=== PATIENT | male | born 1960 | race Caucasian/White ===

== ENCOUNTER 2016-06-11 00:24 | Emergency (ER) | payer SELFPAY ==
[~2016-06-11] VITALS: Ht 198.1 cm; Wt 124.8 kg
[~2016-06-11 00:24] MED LIST: LISIPOW XX; SOMA350T; SUBO2MIS SL
[2016-06-11 00:30] VITALS: BP 155/102; PULSE 92; RESP 18; TEMP 97.6; O2SAT 98
[2016-06-11 00:42] VITALS: BP 167/99; PULSE 81; RESP 18; O2SAT 100
[2016-06-11] MEDS ORDERED: NAPR250T PO (00:59)
[2016-06-11] MEDS ORDERED: LIDOCAINE HCL 1% PF 30 ML VIAL INFIL ONE (01:00)
--- NOTE | 2016-06-11 01:15 | PD ---
HPI Chief Complaint: Laceration/Skin Injury Time Seen by Provider: 00:52 Travel History International Travel<30 days: No Contact w/Intl Traveler<30days: No Traveled to known affect area: No History of Present Illness HPI 56-year-old male presents to the emergency department with laceration to the right index finger. Patient reports just prior to arrival to the emergency department within the past hour while using a knife to prepare a meal he cut his right index finger with a knife at the DIP. Patient now has difficulty extending the distal portion of the finger. Patient denies other injury. Patient reports his tetanus status is current as of 2013. Patient rates pain . PFSH Past Medical History Narrative Medical Hypertension, tonsillectomy, sinus surgery, C5 6 laminectomy, alcohol use, nursing notes reviewed Diminished Hearing: No Hypertension: Yes Medical other: Yes (TONSILLECTOMY) Immunizations Current: Yes Tetanus Vaccination: < 5 Years Past Surgical History Neurologic Surgery: Yes (LAMINECTOMY C5 C6) Tonsillectomy: Yes Other Surgery: Yes (SINUSES) Social History Alcohol Use: Yes (12 PACK BEERS DAILY) Tobacco Use: No Substance Use: No Allergies-Medications (Allergen,Severity, Reaction): Coded Allergies: Demerol (Verified Allergy, Severe, "FEELS LIKE HE IS GOING TO ", ) Penicillin (Verified Allergy, Mild, 06/11/16) Tetracycline (Verified Allergy, Mild, 06/11/16) Reported Meds & Prescriptions Reported Meds & Active Scripts Active Reported Naproxen 250 Mg Tab 440 Mg PO BID Lisinopril Pow 1 XX Review of Systems Except as stated in HPI: all other systems reviewed are Neg Physical Exam Narrative Well-developed well-nourished male in no acute distress no respiratory distress Extremity attention right index finger dorsal aspect 1 cm laceration over the DIP with evidence of inability to completely extend the digit consistent with extensor tendon injury; I refill brisk and less than 2 seconds per digit sensation intact flexion intact. Data Data Last Documented VS Vital Signs Date Time Temp Pulse Resp B/P Pulse Ox O2 Delivery O2 Flow Rate FiO2 06/11/16 00:45 81 18 06/11/16 00:42 167/99 100 06/11/16 00:30 97.6 Orders Lidocaine Pf 1% Inj (Xylocaine-Mpf 1% In (06/11/16 01:00) Finger (Leu6cav) (06/11/16 ) MDM Medical Decision Making Medical Screen Exam Complete: Yes Emergency Medical Condition: Yes Differential Diagnosis Laceration, fracture, tendon injury Narrative Course Patient with extensor tendon injury of the right index finger with associated laceration; Imaging study does not reveal any obvious fracture; laceration repaired and splint applied. Patient referred to hand surgeon. Physician Communication Physician Communication discussed with Dr Dugan--will see as outpatient Diagnosis Primary Impression: Extensor tendon laceration, finger, open wound Qualified Code: S66.529A - Extensor tendon laceration, finger, open wound, initial encounter Referrals: Hand Surgeon 3 days call office on Monday to schedule follow up appointment --asset protection detective hand surgeon - -Dr Dugan Patient Instructions: General Instructions Additional Instructions: Keep site clean and dry wear splint Follow-up with hand surgeon call office on Monday to schedule follow-up appointment Take antibiotic as prescribed May take as tolerated ibuprofen for pain associated with inflammation Recommend two-day wound check 7-10 day suture removal Med/Other Pt SpecificInfo: Prescription(s) given Scripts Sulfamethoxazole-Trimethoprim (Bactrim DS)800-160 Mg Tab1 Tab PO BID #14 TAB Ref 0 Prov:Carey Riojas MD 06/11/16 Disposition: DISCHARGE HOME Condition: Stable Carey Riojas MD Jun 11, 2016 01:14
[2016-06-11] MEDS ORDERED: CEPH-460 PO (01:46)
[2016-06-11] MEDS ORDERED: BACT800T5 PO (01:48)
[2016-06-11] MEDS ORDERED: SULFAMETHOXAZOLE-TRIMETHOPRIM DS 800-160 MG TAB PO ONE (02:00)
--- NOTE | 2016-06-11 02:18 | RADHPO ---
EXAM DATE/TIME: 06/11/2016 01:05 [facility] COMPARISON: No previous studies available for comparison. INDICATIONS : Laceration to right hand, second digit post cutting with knife. MEDICAL HISTORY : None. SURGICAL HISTORY : None. ENCOUNTER: Initial ACUITY: 1 day PAIN SCORE: 4/10 LOCATION: Right upper extremity FINDINGS: Examination of the second digit of the right hand demonstrates no evidence of fracture or dislocation . No radiopaque foreign bodies are seen. CONCLUSION: 1. No acute bony abnormalities. Silvio Romero MD on June 11, 2016 at 2:16 Board Certified Radiologist. This report was verified electronically.
== END 2016-06-11 02:35 | disposition home or self-care (01) ==
LOC: PHED 00:24
DX: S66.320A Laceration of extensor muscle, fascia and tendon of right index finger at wrist and hand level, initial encounter (principal); I10 Essential (primary) hypertension; W26.0XXA Contact with knife, initial encounter; Y93.G1 Activity, food preparation and clean up; Y92.000 Kitchen of unspecified non-institutional (private) residence as the place of occurrence of the external cause; Y99.8 Other external cause status
CPT/HCPCS: 12001; 73140

== ENCOUNTER 2017-09-03 18:13 | Inpatient (IN) | payer SELFPAY ==
[2017-09-03] VITALS (7 sets, daily range): BP systolic 157–197; BP diastolic 68–89; PULSE 88–97; RESP 18–22; TEMP 97.4; O2SAT 96–100
[~2017-09-03] VITALS: Ht 198.1 cm; Wt 127.4 kg
[~2017-09-03 18:13] MED LIST changes: +BACT800T5 PO; +NAPR250T4 PO; -SOMA350T; -SUBO2MIS SL
[2017-09-03] MEDS ORDERED: SODIUM CHLOR 0.9% 1000 ML INJ 1,000 ML IV SCH (18:26)
[2017-09-03] MEDS ORDERED: PANTOPRAZOLE INJ 80 MG in SODIUM CHLORIDE 0.9% INJ 35 ML IV ONE (18:26)
[2017-09-03] MEDS ORDERED: SODIUM CHLORIDE 0.9% FLUSH 10 ML FLUSH IVF PRN (18:30)
--- NOTE | 2017-09-03 18:36 | PD ---
HPI Chief Complaint: Syncope/Near-Syncope Time Seen by Provider: 18:26 Travel History International Travel<30 days: No Contact w/Intl Traveler<30days: No Traveled to known affect area: No History of Present Illness HPI The patient is a 57-year-old male who presents to the emergency department via EMS for melena. The patient states his symptoms started last night at 3 AM when he went to the bathroom. The patient states he felt lightheaded, weak, and subsequently had a bowel movement which she describes as dark black stool. The patient states he has had a total of 5 bowel movements with black tarry stool without any visible blood. The patient also states he drank some water and had one episode of emesis which appeared to be coffee- ground like in color without any visible bright red blood. The patient does have a previous history of an ulcer, however, he states he also healed. He does not currently take any proton pump inhibitors or H2 blockers. The patient does have a history of hypertension but does not take his lisinopril. The patient states he stood up earlier today and became lightheaded, had to sit down on the ground. EMS states when they arrived the patient was tachycardic with a heart rate greater than 100 and pale. He also noted he was diaphoretic at that time. They provided the patient 500 cc of normal saline prior to arrival and the patient's symptoms improved. He denies taking any blood thinners or anticoagulants. However, he takes 5 220 mg tablets of Aleve every morning and has been doing this for several months. The patient does not have a primary physician. Symptoms are moderate. He denies any chest pain or shortness of breath. He does complain of mild lightheadedness upon standing. The patient also states he drinks 8-10 16 ounce natural ice beers daily. PFS Past Medical History Diminished Hearing: No Hypertension: Yes Immunizations Current: Yes Tetanus Vaccination: < 5 Years Influenza Vaccination: No ?: Not Past Surgical History Neurologic Surgery: Yes (LAMINECTOMY C5 C6) Tonsillectomy: Yes Other Surgery: Yes (SINUSES) Social History Alcohol Use: Yes (8-10 BEERS DAILY) Tobacco Use: Yes Substance Use: No Allergies-Medications (Allergen,Severity, Reaction): Coded Allergies: meperidine (Unverified Allergy, Severe, "FEELS LIKE HE IS GOING TO ", ) doxycycline (Unverified Allergy, Mild, 11/08/16) minocycline (Unverified Allergy, Mild, 11/08/16) penicillin G (Unverified Allergy, Mild, 11/08/16) tigecycline (Unverified Allergy, Mild, 11/08/16) Reported Meds & Prescriptions Reported Meds & Active Scripts Active Bactrim DS (Sulfamethoxazole-Trimethoprim) 800-160 Mg Tab 1 Tab PO BID Reported Naproxen 250 Mg Tab 440 Mg PO BID Lisinopril Pow 1 XX Review of Systems Except as stated in HPI: all other systems reviewed are Neg General / Constitutional: No: Fever HENT: Positive: Lightheadedness, No: Headaches Cardiovascular: Positive: Tachycardia (Tachycardia per EMS), Diaphoresis ( Diaphoretic per EMS), Syncope (Near-syncope), No: Chest Pain or Discomfort Gastrointestinal: Positive: Vomiting, Other (Dark black tarry stools and one episode of coffee-ground emesis), No: Nausea, Abdominal Pain Genitourinary: No: Decreased Urinary Output Musculoskeletal: Positive: Weakness Neurologic: Positive: Weakness, Dizziness Physical Exam Narrative GENERAL: Awake, alert, pleasant 57-year-old male who appears his stated age and is in no acute respiratory distress. SKIN: Focused skin assessment warm/dry. HEAD: Atraumatic. Normocephalic. EYES: Pupils equal and round. Conjunctival pallor noted. ENT: No nasal bleeding or discharge. Mucous membranes pink and moist. NECK: Trachea midline. No JVD. CARDIOVASCULAR: Regular rate and rhythm. No murmur appreciated. Heart rate in the 90s. RESPIRATORY: No accessory muscle use. Clear to auscultation. Breath sounds equal bilaterally. GASTROINTESTINAL: Abdomen soft, obese, with reducible umbilical hernia. No guarding or rigidity. MUSCULOSKELETAL: No obvious deformities. No clubbing. No cyanosis. No edema. Rectal: Grossly black stool that is grossly guaiac positive. NEUROLOGICAL: Awake and alert. No obvious cranial nerve deficits. Motor grossly within normal limits. Normal speech. PSYCHIATRIC: Appropriate mood and affect; insight and judgment normal. Data Data Last Documented VS Vital Signs Date Time Temp Pulse Resp B/P (MAP) Pulse Ox O2 Delivery O2 Flow Rate FiO2 09/03/17 18:24 97 18 189/89 (122) 100 Room Air Orders Orders Complete Blood Count With Diff (09/03/17) Comprehensive Metabolic Panel (09/03/17) Prothrombin Time / Inr (Pt) (09/03/17) Act Partial Throm Time (Ptt) (09/03/17) Alcohol (Ethanol) (09/03/17) Type And Screen (09/03/17) Ecg Monitoring (09/03/17) Iv Access Insert/Monitor (09/03/17) Oximetry (09/03/17) Sodium Chlor 0.9% 1000 Ml Inj (Ns 1000 M (09/03/17) Sodium Chloride 0.9% Flush (Ns Flush) (09/03/17) Sodium Chloride 0.9... W/Pantoprazole In (09/03/17) Sodium Chloride 0.9... W/Pantoprazole In (09/03/17) Lactic Acid (09/03/17) Orthostatic Vital Signs (09/03/17) MDM Medical Decision Making Medical Screen Exam Complete: Yes Emergency Medical Condition: Yes Medical Record Reviewed: Yes Interpretation(s) EKG reveals normal sinus rhythm with a rate of 90 inverted T waves noted in lead V4, V5, V6, I, and aVL. LVH. Differential Diagnosis Differential diagnosis includes esophageal varices, gastritis, peptic ulcer disease, upper GI bleed, symptomatic anemia, coagulopathy, Aleve side effect, electrolyte abnormality. Narrative Course IV was established, labs are drawn and sent, and the patient was placed on cardiac telemetry monitoring and continuous pulse oximetry monitoring. EKG was ordered and interpreted. Type and screen was sent to lab. Orthostatic vital signs were obtained. The patient was administered a Protonix bolus and placed on a Protonix drip. The patient was signed out to the oncoming physician at 7 PM. The patient will require admission. [facility] Point of Care Internal Pos. & Neg. Controls: Passed Fecal Specimen Occult Blood: Positive Physician Communication Physician Communication The on-call medical service was paged for admission. Diagnosis Primary Impression: Upper gastrointestinal hemorrhage Admitting Information Admitting Physician Requests: Admit Condition: Stable Lv Temple MD Sep 03, 2017 18:36
[2017-09-03 18:54] LABS: BASOPHIL # 0.1 TH/MM3 (0-0.2); BASOPHIL % 0.7 % (0.0-2.0); EOSINOPHIL % 0.2 % (0.0-4.0); HEMATOCRIT 25.7 % (39.0-51.0); HEMOGLOBIN 8.4 GM/DL (13.0-17.0); LYMPH % 12.5 % (9.0-44.0); LYMPHOCYTE # 1.9 TH/MM3 (1.0-4.8); MEAN CELL VOLUME 89.1 FL (80.0-100.0); MEAN CORPUSCULAR HEMOGLOBIN 29.3 PG (27.0-34.0); MEAN CORPUSCULAR HGB CONC 32.8 % (32.0-36.0); MEAN PLATELET VOLUME 9.7 FL (7.0-11.0); MONOCYTE # 0.9 TH/MM3 (0-0.9); NEUT % 80.6 % (16.0-70.0); PLATELET COUNT 230 TH/MM3 (150-450); RED BLOOD COUNT 2.88 MIL/MM3 (4.50-5.90); WHITE BLOOD COUNT 14.9 TH/MM3 (4.0-11.0)
[2017-09-03] MEDS: PANTOPRAZOLE INJ 80 MG in SODIUM CHLORIDE 0.9% INJ 100 ML IV SCH (19:12)
[2017-09-03 19:13] LABS: PROTHROMBIN TIME - PATIENT 10.4 SEC (9.8-11.6)
[2017-09-03 19:14] LABS: ALBUMIN 2.8 GM/DL (3.4-5.0); AST (GOT) 17 U/L (15-37); BICARBONATE 22.4 MEQ/L (21.0-32.0); BLOOD UREA NITROGEN 56 MG/DL (7-18); CALCIUM 7.8 MG/DL (8.5-10.1); CHLORIDE 108 MEQ/L (98-107); CREATININE 0.85 MG/DL (0.60-1.30); GLOMERULAR FILTRATION RATE 93 ML/MIN (>89); GLUCOSE,RANDOM 140 MG/DL (74-106); SODIUM (NA) 142 MEQ/L (136-145)
--- NOTE | 2017-09-03 19:14 | PD ---
Physical Exam Narrative General: The patient is a well-developed well-nourished male in no acute distress. Head and Neck exam: Head is normocephalic atraumatic. Mouth: Moist mucus membranes. Neck: No palpable lymphadenopathy. No nuchal rigidity. No thyromegaly. Cardiovascular: Regular rate and rhythm without murmurs, gallops, or rubs. No pulse deficit to the extremities on simultaneous auscultation and palpation of his radial artery. Lungs: Clear to auscultation bilaterally. No wheezes, rhonchi, or rales. Abdomen: Soft, with reported periumbilical tenderness on palpation with an umbilical hernia palpated. The patient reports that this is chronic, however the tenderness is somewhat new. The patient refuses to allow for thorough examination of the area for palpation for reduction, however according to Dr. Temple he was able to adequately evaluate the patient's abdomen and the umbilical hernia was reducible at that time. No guarding, rebound, or rigidity. Normal bowel sounds are audible. Extremities: No clubbing, cyanosis, or edema. 2+ pulses in all 4 extremities. Neurologic exam: Grossly nonfocal. Data Data Last Documented VS Vital Signs Date Time Temp Pulse Resp B/P (MAP) Pulse Ox O2 Delivery O2 Flow Rate FiO2 09/03/17 20:36 95 20 165/68 (100) 98 Room Air Orders Orders Complete Blood Count With Diff (09/03/17 18:) Comprehensive Metabolic Panel (09/03/17 18:) Prothrombin Time / Inr (Pt) (09/03/17 18:) Act Partial Throm Time (Ptt) (09/03/17 18:) Alcohol (Ethanol) (09/03/17 18:) Type And Screen (09/03/17 18:) Ecg Monitoring (09/03/17 18:) Iv Access Insert/Monitor (09/03/17:) Oximetry (09/03/17 18:) Sodium Chlor 0.9% 1000 Ml Inj (Ns 1000 M (09/03/17 18:26) Sodium Chloride 0.9% Flush (Ns Flush) (09/03/17 18:30) Sodium Chloride 0.9... W/Pantoprazole In (09/03/17 18:26) Sodium Chloride 0.9... W/Pantoprazole In (09/03/17 18:26) Lactic Acid (09/03/17 18:26) Orthostatic Vital Signs (09/03/17 18:26) Electrocardiogram (09/03/17 18:29) Ct Abd/Pel W Iv Contrast(Rout) (09/03/17 20:35) Admit Order (Ed Use Only) (09/03/17 20:37) Labs Laboratory Tests Test 09/03/17 18:40 White Blood Count 14.9 TH/MM3 Red Blood Count 2.88 MIL/MM3 Hemoglobin 8.4 GM/DL Hematocrit 25.7 % Mean Corpuscular Volume 89.1 FL Mean Corpuscular Hemoglobin 29.3 PG Mean Corpuscular Hemoglobin Concent 32.8 % Red Cell Distribution Width 17.0 % Platelet Count 230 TH/MM3 Mean Platelet Volume 9.7 FL Neutrophils (%) (Auto) 80.6 % Lymphocytes (%) (Auto) 12.5 % Monocytes (%) (Auto) 6.0 % Eosinophils (%) (Auto) 0.2 % Basophils (%) (Auto) 0.7 % Neutrophils # (Auto) 12.0 TH/MM3 Lymphocytes # (Auto) 1.9 TH/MM3 Monocytes # (Auto) 0.9 TH/MM3 Eosinophils # (Auto) 0.0 TH/MM3 Basophils # (Auto) 0.1 TH/MM3 CBC Comment DIFF FINAL Differential Comment Prothrombin Time 10.4 SEC Prothromb Time International Ratio 1.0 RATIO Activated Partial Thromboplast Time 17.8 SEC Blood Urea Nitrogen 56 MG/DL Creatinine 0.85 MG/DL Random Glucose 140 MG/DL Total Protein 5.4 GM/DL Albumin 2.8 GM/DL Calcium Level 7.8 MG/DL Alkaline Phosphatase 38 U/L Aspartate Amino Transf (AST/SGOT) 17 U/L Alanine Aminotransferase (ALT/SGPT) 32 U/L Total Bilirubin 0.6 MG/DL Sodium Level 142 MEQ/L Potassium Level 4.0 MEQ/L Chloride Level 108 MEQ/L Carbon Dioxide Level 22.4 MEQ/L Anion Gap 12 MEQ/L Estimat Glomerular Filtration Rate 93 ML/MIN Lactic Acid Level 1.9 mmol/L Ethyl Alcohol Level LESS THAN 3 MG/DL [facility] Medical Record Reviewed: Yes Supervised Visit with MYCHAL: No Narrative Course During the course of the patient's emergency department visit, the patient's history, examination, and differential diagnosis were reviewed with the patient. The patient was placed on a monitoring and evaluation advisor with oximetry and frequent blood pressure monitoring. The patient had IV access obtained and blood work sent for analysis. The patient's case was checked out to me by Dr. Temple. Please see his complete history and physical. The patient's case was checked out to me at the conclusion of his shift. The patient was initially provided normal saline at 125 mL/h, Protonix 80 mg IV followed by a Protonix drip. The patient's laboratory studies were reviewed and remarkable for a white count of 14.9, hemoglobin 8.4, platelets 230 with 80.6 neutrophils. Given the patient 's reported abdominal pain, CT scan of the abdomen and pelvis was added to the patient's workup. CMP is remarkable for a chloride of 108, BUN is elevated at 56 likely related to his GI bleed, glucose 140, lactic acid 1.9, calcium 7.8, alk phos 38, albumin 2.8. PT 10.4, PTT 17.8. Alcohol level less than 3. Radiology studies were reviewed and remarkable for Last Impressions Abdomen/Pelvis CT 09/03/172034 Signed Impressions: . CONCLUSION: 1. No acute findings. 2. Nonacute findings include mild fatty liver. 4 cm hepatic hemangioma, bilate ral age. Region Adrenal masses most characteristic of adrenal adenomas, fat-con taining umbilical hernia and sebaceous cyst posteriorly. The patient's results were discussed with the patient, including the plan of care. I explained that further testing and/ or monitoring is indicated based on the patient's history, examination, and/ or laboratory findings. Therefore, I recommended admission for additional evaluation. The patient expressed understanding and was agreeable with this plan. The patient was admitted to the hospital in guarded condition and sent to a bed under the care of the family practice resident service. Physician Communication Physician Communication The patient's case including history, pertinent physical examination findings, and laboratory studies were discussed with the family practice resident. It was agreed that the patient would be admitted to the Dr. Valencia's service. Diagnosis Primary Impression: Upper gastrointestinal hemorrhage Additional Impression: Umbilical hernia Qualified Codes: K42.9 - Umbilical hernia without obstruction or gangrene Admitting Information Admitting Physician Requests: Admit Condition: Stable Britta Vickers MD Sep 03, 2017 19:14
[2017-09-03 19:15] LABS: ALT (GPT) 32 U/L (12-78)
[2017-09-03 19:18] LABS: ALKALINE PHOSPHATASE 38 U/L (45-117); TOTAL BILIRUBIN ADULT 0.6 MG/DL (0.2-1.0); TOTAL PROTEIN 5.4 GM/DL (6.4-8.2)
[2017-09-03] MEDS ORDERED: SENNOSIDES 8.6 MG TAB PO PRN (21:15)
[2017-09-03] MEDS ORDERED: NALOXONE HCL 0.4 MG/ML AMP IV PUSH PRN (21:15)
[2017-09-03] MEDS ORDERED: LORazepam 1 MG TAB PO PRN (21:15)
[2017-09-03] MEDS ORDERED: THIAMINE HCL 100 MG TAB PO ONE (21:15)
[2017-09-03] MEDS ORDERED: FLUMAZENIL 0.5 MG/5 ML VIAL IV PUSH PRN (21:15)
[2017-09-03] MEDS ORDERED: BISACODYL 10 MG SUPP RECTAL PRN (21:15)
[2017-09-03] MEDS ORDERED: SODIUM CHLORIDE 0.9% FLUSH 10 ML FLUSH IV FLUSH PRN (21:15)
[2017-09-03] MEDS ORDERED: MAGNESIUM HYDROXIDE SUSP 30 ML CUP PO PRN (21:15)
[2017-09-03] MEDS ORDERED: LORazepam 2 MG TAB PO PRN (21:15)
[2017-09-03] MEDS ORDERED: LORazepam 2 MG/ML VIAL IV PUSH PRN ×4 (21:15)
[2017-09-03] MEDS ORDERED: LACTULOSE SYRUP 20 GM/30 ML CUP PO PRN (21:15)
--- NOTE | 2017-09-03 21:17 | HHI.HP ---
HPI Service Family Medicine Primary Care Physician Unknown Admission Diagnosis GI Bleed Diagnoses: International Travel<30 Days: No Contact w/Intl Traveler<30days: No Known Affected Area: No History of Present Illness 57 yo male with h/o HTN presenting with a 1 day history of bloody stools and hematemesis. Around 3 AM had first large dark tarry stool, proceeded to have 4 more such stools throughout the day. Toward afternoon had one episode large coffee ground emesis. + nausea. Looked pale, felt lightheaded/dizzy. Mother called EMS to take him to hospital for evaluation. No fall though he felt like he could have fallen. Symptoms associated with abdominal pain last few days. Significant use of Aleve (Five 220 mg tabs a day for last several weeks). Social Hx notable for alcohol use 8-10 beers per day. Review of Systems Constitutional: DENIES: Fever, Chills Endocrine: DENIES: Heat/cold intolerance Eyes: DENIES: Vision loss Ears, nose, mouth, throat: DENIES: Vertigo, Nasal discharge, Throat pain, Ear Pain Respiratory: DENIES: Cough, Wheezing, Shortness of breath Cardiovascular: DENIES: Chest pain, Palpitations Gastrointestinal: COMPLAINS OF: Abdominal pain, Black stools, Nausea, Vomiting , DENIES: Constipation, Diarrhea Genitourinary: DENIES: Dysuria Musculoskeletal: DENIES: Joint pain, Muscle aches Integumentary: DENIES: Rash Hematologic/lymphatic: DENIES: Bruising Neurologic: DENIES: Localized weakness Psychiatric: DENIES: Anxiety, Depression Past Family Social History Past Medical History Essential hypertension Past Surgical History Tonsillectomy Sinus surgery Neck fusion - 2009 Reported Medications Reports Rx for lisinopril, but stopped taking months ago Allergies: Coded Allergies: meperidine (Unverified Allergy, Severe, "FEELS LIKE HE IS GOING TO ", ) doxycycline (Unverified Allergy, Mild, 11/08/16) minocycline (Unverified Allergy, Mild, 11/08/16) penicillin G (Unverified Allergy, Mild, 11/08/16) tigecycline (Unverified Allergy, Mild, 11/08/16) Active Ordered Medications Current Medications Medications (Trade) Dose Ordered Sig/Cyrus Route Start Time Stop Time Status Last Admin Sodium Chloride 1,000 ml @ 125 mls/hr Q8H IV 09/03/17 18:26 09/04/17 02:25 09/03/17 18:54 (NS Flush) 2 ml UNSCH PRN IVF 09/03/17 18:30 Pantoprazole Sodium 80 mg/ Sodium Chloride 100 ml @ 10 mls/hr Q10H IV 09/03/17 18:26 09/03/17 19:12 Sodium Chloride 1,000 ml @ 100 mls/hr Q10H IV 09/03/17 21:04 09/03/17 21:34 (NS Flush) 2 ml UNSCH PRN IV FLUSH 09/03/17 21:15 (NS Flush) 2 ml BID IV FLUSH 09/04/17 09:00 (Narcan Inj) 0.4 mg UNSCH PRN IV PUSH 09/03/17 21:15 (Barbi-Colace) 1 tab BID PO 09/04/17 09:00 (Milk Of Magnesia Liq) 30 ml Q12H PRN PO 09/03/17 21:15 (Senokot) 17.2 mg Q12H PRN PO 09/03/17 21:15 (Dulcolax Supp) 10 mg DAILY PRN RECTAL 09/03/17 21:15 (Lactulose Liq) 30 ml DAILY PRN PO 09/03/17 21:15 (Romazicon Inj) 0.2 mg Q1M PRN IV PUSH 09/03/17 21:15 (Ativan) 1 mg Q4H PRN PO 09/03/17 21:15 09/03/17 21:40 (Ativan Inj) 1 mg Q4H PRN IV PUSH 09/03/17 21:15 (Ativan) 2 mg Q2H PRN PO 09/03/17 21:15 (Ativan Inj) 2 mg Q2H PRN IV PUSH 09/03/17 21:15 (Ativan Inj) 2 mg Q1H PRN IV PUSH 09/03/17 21:15 (Ativan Inj) 2 mg Q15M PRN IV PUSH 09/03/17 21:15 (Vitamin B1) 100 mg DAILY PO 09/04/17 09:00 (Theragran) 1 tab DAILY PO 09/04/17 09:00 (Zofran Odt) 4 mg Q6H PRN PO 09/03/17 22:15 Family History Father had essential hypertension Social History Tob - Smokes socially (a pack a month or so) Alc - 8-10 beers per day Drugs - h/o opiate abuse in the past, not for many years Lives with mom and cousin Physical Exam Vital Signs Vital Signs Date Time Temp Pulse Resp B/P (MAP) Pulse Ox O2 Delivery O2 Flow Rate FiO2 09/03/17 20:36 95 20 165/68 (100) 98 Room Air 09/03/17 20:01 92 18 197/78 (117) 98 Room Air 09/03/17 18:28 99 Room Air 09/03/17 18:24 97 18 189/89 (122) 100 Room Air 09/03/17 18:24 90 18 100 Room Air 09/03/17 18:20 94 18 189/89 (122) 99 Physical Exam GENERAL: WDWN overweight adult white male lying in bed in NAD SKIN: No rashes, ecchymoses or lesions. Cool and dry. Pale. HEAD: NC/AT EYES: PERRL. EOMI. No conjunctival injection or drainage. ENT: MMM, OP without erythema, tonsillar swelling, or exudate. NECK: Supple, no lymphadenopathy. CARDIOVASCULAR: NRRR. Normal S1/S2. No MRG RESPIRATORY: CTAB. No crackles or wheezes. GASTROINTESTINAL: Abdomen soft, moderately distended, non-tender. No hepato- splenomegaly or palpable masses. ?fluid wave (questionable due to body habitus) . ~3x3 cm umbilical hernia, reducible, without evidence of strangulation. MUSCULOSKELETAL: Extremities without clubbing, cyanosis, or edema. NEUROLOGICAL: Awake and alert. Cranial nerves II through XII grossly intact. Moves all extremities without difficulty. No asterixis. Normal speech. Laboratory Laboratory Tests Test 09/03/17 18:40 White Blood Count 14.9 Red Blood Count 2.88 Hemoglobin 8.4 Hematocrit 25.7 Mean Corpuscular Volume 89.1 Mean Corpuscular Hemoglobin 29.3 Mean Corpuscular Hemoglobin Concent 32.8 Red Cell Distribution Width 17.0 Platelet Count 230 Mean Platelet Volume 9.7 Neutrophils (%) (Auto) 80.6 Lymphocytes (%) (Auto) 12.5 Monocytes (%) (Auto) 6.0 Eosinophils (%) (Auto) 0.2 Basophils (%) (Auto) 0.7 Neutrophils # (Auto) 12.0 Lymphocytes # (Auto) 1.9 Monocytes # (Auto) 0.9 Eosinophils # (Auto) 0.0 Basophils # (Auto) 0.1 CBC Comment DIFF FINAL Differential Comment Prothrombin Time 10.4 Prothromb Time International Ratio 1.0 Activated Partial Thromboplast Time 17.8 Blood Urea Nitrogen 56 Creatinine 0.85 Random Glucose 140 Total Protein 5.4 Albumin 2.8 Calcium Level 7.8 Alkaline Phosphatase 38 Aspartate Amino Transf (AST/SGOT) 17 Alanine Aminotransferase (ALT/SGPT) 32 Total Bilirubin 0.6 Sodium Level 142 Potassium Level 4.0 Chloride Level 108 Carbon Dioxide Level 22.4 Anion Gap 12 Estimat Glomerular Filtration Rate 93 Lactic Acid Level 1.9 Ethyl Alcohol Level LESS THAN 3 Result Diagram: 09/03/17183909/03/171839 Imaging Last Impressions Abdomen/Pelvis CT 09/03/172034 Signed Impressions: . CONCLUSION: 1. No acute findings. 2. Nonacute findings include mild fatty liver. 4 cm hepatic hemangioma, bilate ral age. Region Adrenal masses most characteristic of adrenal adenomas, fat-con taining umbilical hernia and sebaceous cyst posteriorly. Caprini VTE Risk Assessment Caprini VTE Risk Assessment: Mod/High Risk (score >= 2) VTE Pharm Contraindication: Active bleeding Assessment and Plan Assessment and Plan 57 yo with h/o essential hypertension presenting with: Problem List: (1) Upper gastrointestinal hemorrhage ICD Codes: K92.2 - Gastrointestinal hemorrhage, unspecified Status: Acute Plan: Acute GIB, likely upper based on history Likely etiology PUD due to NSAID use, but variceal bleed also a concern given alcohol intake - Consulted GI; case discussed with Dr. Salas, appreciate recs - NPO after midnight, plan for scope in AM - Primary team to notify GI if further hematemesis or drastic drop in H/H for more urgent endoscopy - Protonix drip - Avoid NSAIDs - Trend H/H (2) Abdominal pain ICD Codes: R10.9 - Unspecified abdominal pain Status: Acute Plan: Epigastric abdominal pain likely related to PUD or variceal bleed (which is causing GIB) - See plan above - Tylenol PRN pain (3) Overweight (BMI 25.0-29.9) ICD Codes: E66.3 - Overweight Status: Chronic Plan: Monitor vitals, may need CPAP at night though not on CPAP at home (4) Umbilical hernia ICD Codes: K42.9 - Umbilical hernia without obstruction or gangrene Status: Chronic Plan: Benign umbilical hernia - monitor clinically (5) Essential hypertension ICD Codes: I10 - Essential (primary) hypertension Status: Chronic Plan: BP elevated on admission - Hold antihypertensive treatment for now given acute GIB (6) Alcohol use ICD Codes: Z78.9 - Other specified health status Plan: CIWA protocol (7) FEN/PPX Plan: Fluids: NS @ 100 cc/hr Elecs: Monitor, replete PRN Nutrition: NPO after midnight with PO meds DVT: SCDs Code status: Full code Discussed condition with: Dr. Rush (GI), ER physician Dispo: Admit to inpatient. Anticipate 2-3 day LOS Physician Certification 2 Midnight Certification Type: Admission for Inpatient Services Order for Inpatient Services The services are ordered in accordance with Medicare regulations or non- Medicare payer requirements, as applicable. In the case of services not specified as inpatient-only, they are appropriately provided as inpatient services in accordance with the 2-midnight benchmark. Estimated LOS (days): 3 days is the estimated time the patient will need to remain in the hospital, assuming treatment plan goals are met and no additional complications. Post-Hospital Plan: Home Problem Qualifiers (1) Abdominal pain: Qualified Codes: R10.84 - Generalized abdominal pain (2) Umbilical hernia: Qualified Codes: K42.9 - Umbilical hernia without obstruction or gangrene Wolfgang Young MD R2 Sep 03, 2017 21:17
[2017-09-03] MEDS ORDERED: IOHEXOL 350 MG/ML 10 ML VIAL (for RAD DIAG) IVCONTRAST ONE (21:18)
[2017-09-03] MEDS: SODIUM CHLOR 0.9% 1000 ML INJ 1,000 ML IV SCH (21:34)
--- NOTE | 2017-09-03 21:43 | RADRPT ---
EXAM DATE: 09/03/2017 9:29 PM EDT AGE/SEX: 57 years / Male INDICATIONS: Patient complains of blood in his stool and hematemesis. CLINICAL DATA: This is the patient's initial encounter. Patient reports that signs and symptoms have been present for 1 day and indicates a pain score of 0/10. MEDICAL/SURGICAL HISTORY: Hypertension. ETOH abuse None. ORAL CONTRAST: No oral contrast ingested. RADIATION DOSE: 22.43 CTDI (mGy) COMPARISON: No prior exams available for comparison. TECHNIQUE: Multiple contiguous axial images were obtained through the abdomen and pelvis following b olus infusion of 96 ml Omnipaque 350 (iohexol) nonionic water-soluble contrast as a single exam dos e. No oral contrast ingested. Using automated exposure control and adjustment of the mA and/or kV ac cording to patient size, the radiation dose was kept as low as reasonably achievable to obtain optima l diagnostic quality images. FINDINGS: Lung bases demonstrate minimal linear scarring. Mild fatty liver with probable 4 cm hemangioma near t he dome of the liver on the left side. Spleen, kidneys and pancreas unremarkable. Bilateral adrenal n odules measuring 2.2 cm on the right and 2.5 cm on the left. There is a fat-containing umbilical angel ia measuring up to 8.3 cm in diameter. Large sebaceous cyst posteriorly on the left measures up to 6. 4 x 3.4 cm. No pelvic masses or free fluid. No adenopathy. No acute bony abnormalities. Mild osteoarthritis of th e hips. . CONCLUSION: 1. No acute findings. 2. Nonacute findings include mild fatty liver. 4 cm hepatic hemangioma, bilateral age. Region Adrena l masses most characteristic of adrenal adenomas, fat-containing umbilical hernia and sebaceous cyst posteriorly. Electronically signed by: Silvio Romero MD 09/03/2017 9:41 PM EDT
[2017-09-03] MEDS ORDERED: ONDANSETRON ODT 4 MG TAB PO PRN (22:15)
[2017-09-03] MEDS ORDERED: LISI-519 PO (22:16)
[2017-09-04] VITALS (9 sets, daily range): BP systolic 116–160; BP diastolic 63–80; PULSE 76–94; RESP 16–20; TEMP 97–97.9; O2SAT 92–100
[2017-09-04 01:19] LABS: HEMATOCRIT 24.6 % (39.0-51.0); HEMOGLOBIN 7.8 GM/DL (13.0-17.0)
[2017-09-04] MEDS: PANTOPRAZOLE INJ 80 MG in SODIUM CHLORIDE 0.9% INJ 100 ML IV SCH ×2 (03:44→15:08)
[2017-09-04] MEDS: SODIUM CHLOR 0.9% 1000 ML INJ 1,000 ML IV SCH ×2 (07:04→17:04)
[2017-09-04] MEDS: DOCUSATE SODIUM 50 MG/SENNA 8.6 MG TAB PO SCH ×2 (08:22→20:29)
[2017-09-04] MEDS: SODIUM CHLORIDE 0.9% FLUSH 10 ML FLUSH IV FLUSH SCH ×2 (08:22→20:29)
[2017-09-04] MEDS: MULTIVITAMIN TAB PO SCH (08:22)
[2017-09-04] MEDS: THIAMINE HCL 100 MG TAB PO SCH (08:22)
[2017-09-04 11:00] LABS: AUTOMATED NEUTROPHIL # 8.1 TH/MM3 (1.8-7.7); BASOPHIL # 0.1 TH/MM3 (0-0.2); BASOPHIL % 0.6 % (0.0-2.0); EOSINOPHIL # 0.1 TH/MM3 (0-0.4); EOSINOPHIL % 1.1 % (0.0-4.0); LYMPH % 15.8 % (9.0-44.0); LYMPHOCYTE # 1.7 TH/MM3 (1.0-4.8); MEAN CORPUSCULAR HEMOGLOBIN 29.3 PG (27.0-34.0); MEAN PLATELET VOLUME 9.2 FL (7.0-11.0); MONO % 6.7 % (0.0-8.0); MONOCYTE # 0.7 TH/MM3 (0-0.9); NEUT % 75.8 % (16.0-70.0); PLATELET COUNT 216 TH/MM3 (150-450); RED BLOOD COUNT 2.35 MIL/MM3 (4.50-5.90); RED CELL DISTRIBUTION WIDTH 17.9 % (11.6-17.2); WHITE BLOOD COUNT 10.6 TH/MM3 (4.0-11.0)
[2017-09-04 11:05] LABS: HEMATOCRIT 20.9 % (39.0-51.0); HEMOGLOBIN 6.9 GM/DL (13.0-17.0)
[2017-09-04 11:27] LABS: BICARBONATE 25.9 MEQ/L (21.0-32.0); CREATININE 0.87 MG/DL (0.60-1.30)
--- NOTE | 2017-09-04 11:36 | HHI.FPPN ---
Subjective Remarks She states that he has had no further bloody bowel movements. No acute events overnight. Vitals stable. No complaints. (Adeola Costa MD R1) Objective Vitals Vital Signs Date Time Temp Pulse Resp B/P (MAP) Pulse Ox O2 Delivery O2 Flow Rate FiO2 09/04/17 08:00 97.9 91 18 116/63 (80) 92 09/04/17 00:00 97.6 94 20 136/67 (90) 99 09/03/17 22:15 97.4 88 22 157/75 (102) 96 09/03/17 21:48 09/03/17 21:41 95 18 179/85 (116) 99 Room Air 09/03/17 20:36 95 20 165/68 (100) 98 Room Air 09/03/17 20:01 92 18 197/78 (117) 98 Room Air 09/03/17 18:28 99 Room Air 09/03/17 18:24 97 18 189/89 (122) 100 Room Air 09/03/17 18:24 90 18 100 Room Air 09/03/17 18:20 94 18 189/89 (122) 99 I/O 09/03/17 09/03/17 09/03/17 09/04/17 09/04/17 09/04/17 07:00 15:00 23:00 07:00 15:00 23:00 Intake Total 35 ml 1100 ml Output Total 350 ml 650 ml Balance -315 ml 450 ml Intake Oral 0 ml IV Total 35 ml 1100 ml Output Urine Total 350 ml 650 ml # Bowel Movements 0 (Adeola Costa MD R1) Result Diagram: 09/04/17 0943 09/04/17 0943 Objective Remarks O. CONSTITUTIONAL/GEN: This is an overweight adult white male lying in bed in no acute acute distress. EYES: conjunctiva normal, PERRLA, EOMI. ENT: Mouth and pharynx normal. LUNGS: clear A-P, respiratory effort is normal. CARDIOVASCULAR: RR without murmur or gallop. No significant edema. GI/ABD: soft without masses or tenderness. NEURO: No focal deficits. Gait is normal SKIN: color normal, no rashes noted. HEME/LYMPH: no bruising, petechia. MUSC: Extremities are normal in appearance. PSYCH/MENTAL STATUS: Alert and oriented x 3. (Adeola Costa MD R1) A/P Assessment and Plan 57 yo with h/o essential hypertension presenting with: Discharge Planning Pending gastroenterology recommendations (Adeola Costa MD R1) Attending Attestation Patient seen and examined. Case reviewed and discussed with the resident team. Agree with plan of care as discussed with me and documented in the resident note. (Jessie Valencia MD) Problem List: (1) Upper gastrointestinal hemorrhage ICD Codes: K92.2 - Gastrointestinal hemorrhage, unspecified Status: Acute Plan: Likely etiology PUD due to NSAID use, but variceal bleed also a concern given alcohol intake. GI consulted. Hemoglobin and hematocrit 6.9/20.9 this morning, downtrending from 7.8/24.6 at midnight. - Plan for transfusion now with 2 units PRBCs. Recheck H&H posttransfusion. Dr. Salas is aware and plans to see patient today. - Patient remains n.p.o. after midnight - Protonix drip - Avoid NSAIDs (2) Overweight (BMI 25.0-29.9) ICD Codes: E66.3 - Overweight Status: Chronic Plan: Monitor vitals, may need CPAP while asleep though not on CPAP at home (3) Umbilical hernia ICD Codes: K42.9 - Umbilical hernia without obstruction or gangrene Status: Chronic Plan: Benign umbilical hernia - monitor clinically (4) Essential hypertension ICD Codes: I10 - Essential (primary) hypertension Status: Chronic Plan: BP elevated on admission - Hold antihypertensive treatment for now given acute GIB (5) Alcohol use ICD Codes: Z78.9 - Other specified health status Plan: [facility] protocol: Score is 1-2 thus far. (6) Abdominal pain ICD Codes: R10.9 - Unspecified abdominal pain Status: Resolved (7) FEN/PPX Plan: Fluids: NS @ 100 cc/hr Elecs: Monitor, replete PRN Nutrition: NPO currently DVT: SCDs (Adeola Costa MD R1) Problem Qualifiers (1) Umbilical hernia: Qualified Codes: K42.9 - Umbilical hernia without obstruction or gangrene (2) Abdominal pain: Qualified Codes: R10.84 - Generalized abdominal pain Adeola Costa MD R1 Sep 04, 2017 11:36 Jessie Valencia MD Sep 04, 2017 12:45
[2017-09-04] MEDS ORDERED: SODIUM CHLOR 0.9% 250 ML INJ 250 ML IV ONE (11:45)
[2017-09-04] MEDS ORDERED: PROPOFOL 200 MG/20 ML AMP IV ONE (12:00)
--- NOTE | 2017-09-04 12:53 | PD.CONS ---
HPI History of Present Illness This is a 57 year old M with PMH significant for HTN who presented to the ER yesterday with complaints of coffee ground emesis and melena that began at 3am yesterday morning. Pt denies any associated abdominal pain, acid reflux, heartburn, unintentional weight loss. States had one previous episode of hematemesis 15 years ago, he stopped drinking alcohol for a little bit and it resolved on its own, did not undergo and EGD at that time. Does reports previous EGD and colonoscopy by Dr. Mcconnell over 5 years ago, thinks findings of polyps but unsure of other findings. Drinks 8-10 beers a day. Reports occasional cigarette. Also takes a significant amount of Aleve, 5 tablets every morning for generalized pain, sometimes repeats the dosage at night. (Deysi Saunders) PFSH Past Medical History HTN Past Surgical History EGD Colonoscopy (Deysi Saunders) Coded Allergies: meperidine (Unverified Allergy, Severe, "FEELS LIKE HE IS GOING TO ", ) doxycycline (Unverified Allergy, Mild, 11/08/16) minocycline (Unverified Allergy, Mild, 11/08/16) penicillin G (Unverified Allergy, Mild, 11/08/16) tigecycline (Unverified Allergy, Mild, 11/08/16) Social History ETOH- 8-10 beers a day Occasional cigarette use Denies illicit drug use (Deysi Saunders) Review of Systems Gastrointestinal: COMPLAINS OF: Black stools, Nausea, Vomiting, Hematemesis, DENIES: Abdominal pain, Bloody stools, Constipation, Diarrhea, Difficulty Swallowing, Odynophagia, Swelling of Abdomen, Heartburn (eDysi Saunders) GI Exam Vitals I&O Vital Signs Date Time Temp Pulse Resp B/P (MAP) Pulse Ox O2 Delivery O2 Flow Rate FiO2 09/04/17 08:00 97.9 91 18 116/63 (80) 92 09/04/17 00:00 97.6 94 20 136/67 (90) 99 09/03/17 22:15 97.4 88 22 157/75 (102) 96 09/03/17 21:48 09/03/17 21:41 95 18 179/85 (116) 99 Room Air 09/03/17 20:36 95 20 165/68 (100) 98 Room Air 09/03/17 20:01 92 18 197/78 (117) 98 Room Air 09/03/17 18:28 99 Room Air 09/03/17 18:24 97 18 189/89 (122) 100 Room Air 09/03/17 18:24 90 18 100 Room Air 09/03/17 18:20 94 18 189/89 (122) 99 I/O 09/03/17 09/03/17 09/03/17 09/04/17 09/04/17 09/04/17 07:00 15:00 23:00 07:00 15:00 23:00 Intake Total 35 ml 1100 ml Output Total 350 ml 650 ml Balance -315 ml 450 ml Intake Oral 0 ml IV Total 35 ml 1100 ml Output Urine Total 350 ml 650 ml # Bowel Movements 0 Imaging Last Impressions Abdomen/Pelvis CT 09/03/172034 Signed Impressions: . CONCLUSION: 1. No acute findings. 2. Nonacute findings include mild fatty liver. 4 cm hepatic hemangioma, bilate ral age. Region Adrenal masses most characteristic of adrenal adenomas, fat-con taining umbilical hernia and sebaceous cyst posteriorly. Laboratory Test 09/03/17 18:40 09/04/17 00:11 09/04/17 09:43 White Blood Count 14.9 TH/MM3 10.6 TH/MM3 Red Blood Count 2.88 MIL/MM3 2.35 MIL/MM3 Hemoglobin 8.4 GM/DL 7.8 GM/DL 6.9 GM/DL Hematocrit 25.7 % 24.6 % 20.9 % Mean Corpuscular Volume 89.1 FL 89.0 FL Mean Corpuscular Hemoglobin 29.3 PG 29.3 PG Mean Corpuscular Hemoglobin Concent 32.8 % 33.0 % Red Cell Distribution Width 17.0 % 17.9 % Platelet Count 230 TH/MM3 216 TH/MM3 Mean Platelet Volume 9.7 FL 9.2 FL Neutrophils (%) (Auto) 80.6 % 75.8 % Lymphocytes (%) (Auto) 12.5 % 15.8 % Monocytes (%) (Auto) 6.0 % 6.7 % Eosinophils (%) (Auto) 0.2 % 1.1 % Basophils (%) (Auto) 0.7 % 0.6 % Neutrophils # (Auto) 12.0 TH/MM3 8.1 TH/MM3 Lymphocytes # (Auto) 1.9 TH/MM3 1.7 TH/MM3 Monocytes # (Auto) 0.9 TH/MM3 0.7 TH/MM3 Eosinophils # (Auto) 0.0 TH/MM3 0.1 TH/MM3 Basophils # (Auto) 0.1 TH/MM3 0.1 TH/MM3 CBC Comment DIFF FINAL DIFF FINAL Differential Comment Prothrombin Time 10.4 SEC Prothromb Time International Ratio 1.0 RATIO Activated Partial Thromboplast Time 17.8 SEC Blood Urea Nitrogen 56 MG/DL 40 MG/DL Creatinine 0.85 MG/DL 0.87 MG/DL Random Glucose 140 MG/DL 119 MG/DL Total Protein 5.4 GM/DL Albumin 2.8 GM/DL Calcium Level 7.8 MG/DL 8.0 MG/DL Alkaline Phosphatase 38 U/L Aspartate Amino Transf (AST/SGOT) 17 U/L Alanine Aminotransferase (ALT/SGPT) 32 U/L Total Bilirubin 0.6 MG/DL Sodium Level 142 MEQ/L 146 MEQ/L Potassium Level 4.0 MEQ/L 3.8 MEQ/L Chloride Level 108 MEQ/L 111 MEQ/L Carbon Dioxide Level 22.4 MEQ/L 25.9 MEQ/L Anion Gap 12 MEQ/L 9 MEQ/L Estimat Glomerular Filtration Rate 93 ML/MIN 90 ML/MIN Lactic Acid Level 1.9 mmol/L Ethyl Alcohol Level LESS THAN 3 MG/DL Physical Examination HEENT: Normocephalic; atraumatic CHEST: Even/unlabored CARDIAC: RRR ABDOMEN: Obese, soft, nontender, bowel sounds active EXTREMITIES: No clubbing, cyanosis, or edema. SKIN: Normal; no rash; no jaundice. GEOTHERMAL OPERATIONS ENGINEER: Alert and oriented times three. (Deysi Saunders) Assessment and Plan Plan Assessment: - Anemia with coffee ground emesis and melena that began at 3 am yesterday morning. Denies abdominal pain, acid reflux, heartburn, unintentional weight loss Risk factors: Daily ETOH (8-10 beers a day) Smokes occasional cigarettes, and heavy use of Aleve- 5 tabs in the morning and sometimes repeats at night History of hematemesis 15 years ago, did not seek medical care at that time, states stopped drinking alcohol and symptoms resolved. Last EGD and colonoscopy by Dr. Mcconnell over 5 years ago, thinks colon polyps unsure of other findings Plan: EGD today Obtain consent Keep NPO Protonix gtt Monitor H/H ETOH withdraw protocol Thiamine and folic acid Further recommendations based on findings of above Pt has been seen and examined by myself and Dr. Salas and this note is written on his behalf (Deysi Saunders) Physician Comments Seen and examined, plan as above. EGD today. Further recommendations to follow. Thank you for the consult. (Frankie Salas MD) Deysi Saunders Sep 04, 2017 12:53 Frankie Salas MD Sep 04, 2017 13:38
[2017-09-04] MEDS ORDERED: SODIUM CHLORID 0.9% 500 ML IV PRN (13:45)
[2017-09-04] MEDS ORDERED: METOPROLOL TARTRATE 25 MG TAB PO PRN (13:45)
[2017-09-04] MEDS ORDERED: CHLORHEXIDINE GLUCONATE 2 % 1 PACK (2 CLOTHS) TOPICAL PRN (13:45)
[2017-09-04] MEDS ORDERED: LACTATED RINGER'S 1000 ML IV PRN (13:45)
[2017-09-04] MEDS ORDERED: POVIDONE IODINE 5% (ANTISEPSIS KIT) 4 APPLICATIONS EACH NARE PRN (13:45)
--- NOTE | 2017-09-04 14:04 | GIPROC ---
[facility] [address] [facility]. [facility], [address] EGD PROCEDURE REPORT EXAM DATE: 09/04/2017 PATIENT NAME: Domingo Billingsley MR #: [id number] BIRTHDATE: 1960 ATTENDING: Frankie Salas MD ORDER #: [id number] INSPECTOR RAW QUARTZ: Jamee Alcocer and Soha Gore STATUS: inpatient INDICATIONS: The patient is a 57 yr old male here for an EGD due to anemia PROCEDURE PERFORMED: EGD w/ biopsy MEDICATIONS: None and Per Anesthesia. TOPICAL ANESTHETIC: none CONSENT: The patient understands the risks and benefits of the procedure and understands that these risks include, but are not limited to: sedation, allergic reaction, infection, perforation and/or bleeding. Alternative means of evaluation and treatment include, among others: physical exam, x-rays, and/or surgical intervention. The patient elects to proceed with this endoscopic procedure. medical equipment was checked for proper function. Hand hygiene and appropriate measures for infection prevention was taken. After the risks, benefits and alternatives of the procedure were thoroughly explained, Informed consent was verified, confirmed and timeout was successfully executed by the treatment team. The patient was anesthetized with topical anesthesia and the Wheelyax [id number] endoscope was introduced through the mouth and advanced to the second portion of the duodenum. Retroflexion was performed and was normal The gastroscope was then slowly withdrawn and removed. ESOPHAGUS: There was LA Class C esophagitis noted. Multiple biopsies were performed. STOMACH: A medium sized non-bleeding, round, deep and clean-based ulcer was found in the gastric antrum. Biopsies were taken at edge of the ulcer and at the center of the ulcer. A soft medium subepithelial lesion was located in the gastric antrum. DUODENUM: Multiple small erosions were found in the duodenal bulb. ADVERSE EVENTS: There were no complications. IMPRESSIONS: 1. There was LA Class C esophagitis with linearulcerations noted; multiple biopsies were performed 2. Medium sized ulcer was found in the gastric antrum; biopsies were taken 3. A medium subepithelial lesions were located in the gastric antrum 4. Multiple small erosions were found in the duodenal bulb 5. Retroflexion was performed and was normal RECOMMENDATIONS: 1. Await biopsy results. Biopsy results will not be ready for 7-10 days. If you don't hear from us in two weeks, call our office for biopsy results. 2. Continue PPI 3. Avoid NSAIDS PATIENT CONDITION: stable DISPOSITION: Observation REPEAT EXAM: NONE Frankie Salas MD eSigned: Frankie Salas MD 09/04/2017 2:04 PM cc: PATIENT NAME: Domingo Billingsley MR#: [id number]
--- NOTE | 2017-09-04 14:47 | EKG ---
Date Performed: 09/03/2017 Time Performed: 18:29:30 PTAGE: 57 years EKG: Sinus rhythm POSSIBLE RIGHT VENTRICULAR CONDUCTION DELAY ST DEVIATION AND MODERATE T-WAVE ABNORMALITY, CONSIDER L ATERAL ISCHEMIA ABNORMAL ECG Since the PREVIOUS TRACING , no significant change noted PREVIOUS TRACIN11/01/2011 19.43 DOCTOR: Deven Boucher Interpretating Date/Time 09/04/2017 14:45:33
[2017-09-04] MEDS: ACETAMINOPHEN 325 MG TAB PO PRN ×2 (18:20→23:19)
[2017-09-05] VITALS: BP 142/63; PULSE 75; RESP 18; TEMP 97; O2SAT 99
[2017-09-05] MEDS: PANTOPRAZOLE INJ 80 MG in SODIUM CHLORIDE 0.9% INJ 100 ML IV SCH ×2 (02:19→11:23)
[2017-09-05 02:23] VITALS: BP 133/71; PULSE 76; RESP 17; TEMP 97.5; O2SAT 98
[2017-09-05] MEDS: SODIUM CHLOR 0.9% 1000 ML INJ 1,000 ML IV SCH (03:04)
[2017-09-05 05:58] LABS: HEMATOCRIT 22.8 % (39.0-51.0); HEMOGLOBIN 7.8 GM/DL (13.0-17.0)
[2017-09-05 08:00] VITALS: BP 148/71; PULSE 73; RESP 17; TEMP 97.2; O2SAT 96
[2017-09-05] MEDS: MULTIVITAMIN TAB PO SCH (08:55)
[2017-09-05] MEDS: DOCUSATE SODIUM 50 MG/SENNA 8.6 MG TAB PO SCH (08:55)
[2017-09-05] MEDS: THIAMINE HCL 100 MG TAB PO SCH (08:55)
[2017-09-05] MEDS: SODIUM CHLORIDE 0.9% FLUSH 10 ML FLUSH IV FLUSH SCH (08:58)
--- NOTE | 2017-09-05 09:47 | HHI.FPPN ---
Subjective Remarks Vitals stable. No bloody stools. Appetite good. No abdominal pain, feels well to go home today. (Adeola Costa MD R1) Objective Vitals Vital Signs Date Time Temp Pulse Resp B/P (MAP) Pulse Ox O2 Delivery O2 Flow Rate FiO2 09/05/17 08:00 97.2 73 17 148/71 (96) 96 09/05/17 02:23 97.5 76 17 133/71 98 09/05/17 00:00 97.0 75 18 142/63 (89) 99 09/04/17 23:50 97.5 79 17 158/75 98 09/04/17 22:10 97.0 80 18 160/75 97 09/04/17 20:00 97.5 79 18 150/68 (95) 99 09/04/17 19:01 97.6 86 16 134/64 99 09/04/17 18:33 97.7 87 17 147/67 100 09/04/17 16:00 97.4 76 19 126/80 (95) 99 09/04/17 14:08 97.1 79 14 134/63 (86) 97 09/04/17 12:00 97.6 86 19 116/63 (80) 93 I/O 09/04/17 09/04/17 09/04/17 09/05/17 09/05/17 09/05/17 07:00 15:00 23:00 07:00 15:00 23:00 Intake Total 1100 ml 300 ml 1200 ml 740 ml Output Total 650 ml 1200 ml 900 ml Balance 450 ml 300 ml 0 ml -160 ml Intake Oral 0 ml 800 ml 240 ml IV Total 1100 ml 100 ml Packed Cells 400 ml 400 ml Other 300 ml Output Urine Total 650 ml 1200 ml 900 ml # Bowel Movements 0 1 (Adeola Costa MD R1) Result Diagram: 09/05/17 0533 09/04/17 0943 Objective Remarks O. CONSTITUTIONAL/GEN: This is an overweight adult white male lying in bed in no acute acute distress. EYES: conjunctiva normal, PERRLA, EOMI. LUNGS: clear A-P, respiratory effort is normal. CARDIOVASCULAR: RR without murmur or gallop. No significant edema. GI/ABD: soft without masses or tenderness. NEURO: No focal deficits. MUSC: Extremities are normal in appearance. (Adeola Costa MD R1) A/P Assessment and Plan 57 yo with h/o essential hypertension admitted for UGI. S/p EGD 09/04 and transfusions x2 PRBCs. Stable today, likely D/C w/GI and PCP f/u. Con't PPI. Bx results in 1 week. Discharge Planning DC today (Adeola Costa MD R1) Attending Attestation Patient seen and examined. Case reviewed and discussed with the resident team. Agree with plan of care as discussed with me and documented in the resident note. (Jessie Valencia MD) Problem List: (1) Upper gastrointestinal hemorrhage ICD Codes: K92.2 - Gastrointestinal hemorrhage, unspecified Status: Acute Plan: - HH 6.9/20.9 on 09/04 @0943. Improved to 7.8/22.8 this AM. - Protonix PO daily outpatient - Avoid NSAIDs - Reg diet UPDATE: pt refused blood draw for H/H. Will order lab to be drawn outpatient after D/C. cleared by GI for DC. (2) Overweight (BMI 25.0-29.9) ICD Codes: E66.3 - Overweight Status: Chronic Plan: Counseling on weight loss (3) Umbilical hernia ICD Codes: K42.9 - Umbilical hernia without obstruction or gangrene Status: Chronic Plan: Benign umbilical hernia - monitor clinically outpatient (4) Essential hypertension ICD Codes: I10 - Essential (primary) hypertension Status: Chronic Plan: Not controlled F/u w/PCP for BP management (5) Alcohol use ICD Codes: Z78.9 - Other specified health status Plan: [facility] protocol: Score is 1-0 thus far. Alcohol cessation counseling (Adeola Costa MD R1) Problem Qualifiers (1) Umbilical hernia: Qualified Codes: K42.9 - Umbilical hernia without obstruction or gangrene Adeola Costa MD R1 Sep 05, 2017 09:47 Jessie Valencia MD Sep 05, 2017 14:59
[2017-09-05] MEDS ORDERED: PROT40TA PO (11:25)
--- NOTE | 2017-09-05 11:27 | HHI.DCPOC ---
Discharge Care Plan Diagnosis: (1) Upper gastrointestinal hemorrhage Goals to Promote Your Health * To prevent worsening of your condition and complications * To maintain your health at the optimal level Directions to Meet Your Goals Take your medications as prescribed Follow your dietary instruction Follow activity as directed Keep your appointments as scheduled Take your immunizations and boosters as scheduled If your symptoms worsen call your PCP, if no PCP go to Urgent Care Center or Emergency Room Smoking is Dangerous to Your Health. Avoid second hand smoke Call the 24-hour hour crisis hotline for domestic abuse at Adeola Costa MD R1 Sep 05, 2017 11:27
[2017-09-05 12:00] VITALS: BP 146/70; PULSE 80; RESP 17; TEMP 97.5; O2SAT 100
--- NOTE | 2017-09-05 13:20 | HHI.GIFU ---
Subjective Remarks Pt resting in bed Denies abdominal pain Denies nausea, vomiting Has had not BM since EGD Tolerating PO (Deysi Saunders) Objective Vitals I&O Vital Signs Date Time Temp Pulse Resp B/P (MAP) Pulse Ox O2 Delivery O2 Flow Rate FiO2 09/05/17 12:00 97.5 80 17 146/70 (95) 100 09/05/17 08:00 97.2 73 17 148/71 (96) 96 09/05/17 02:23 97.5 76 17 133/71 98 09/05/17 00:00 97.0 75 18 142/63 (89) 99 09/04/17 23:50 97.5 79 17 158/75 98 09/04/17 22:10 97.0 80 18 160/75 97 09/04/17 20:00 97.5 79 18 150/68 (95) 99 09/04/17 19:01 97.6 86 16 134/64 99 09/04/17 18:33 97.7 87 17 147/67 100 09/04/17 16:00 97.4 76 19 126/80 (95) 99 09/04/17 14:08 97.1 79 14 134/63 (86) 97 I/O 09/04/17 09/04/17 09/04/17 09/05/17 09/05/17 09/05/17 07:00 15:00 23:00 07:00 15:00 23:00 Intake Total 1100 ml 300 ml 1200 ml 740 ml Output Total 650 ml 1200 ml 900 ml Balance 450 ml 300 ml 0 ml -160 ml Intake Oral 0 ml 800 ml 240 ml IV Total 1100 ml 100 ml Packed Cells 400 ml 400 ml Other 300 ml Output Urine Total 650 ml 1200 ml 900 ml # Bowel Movements 0 1 Laboratory Laboratory Tests Test 09/05/17 05:33 Hemoglobin 7.8 Hematocrit 22.8 Imaging Last Impressions Abdomen/Pelvis CT 09/03/172034 Signed Impressions: . CONCLUSION: 1. No acute findings. 2. Nonacute findings include mild fatty liver. 4 cm hepatic hemangioma, bilate ral age. Region Adrenal masses most characteristic of adrenal adenomas, fat-con taining umbilical hernia and sebaceous cyst posteriorly. Physical Exam HEENT: Normocephalic; atraumatic CHEST: Even/unlabored CARDIAC: RRR ABDOMEN: Obese, soft, nontender, bowel sounds active EXTREMITIES: No clubbing, cyanosis, or edema. SKIN: Normal; no rash; no jaundice. BOWLING [employer] RE[employer]ER: Alert and oriented times three. (Deysi Saunders) Assessment and Plan Plan Assessment: - Anemia with coffee ground emesis and melena that began at 3 am yesterday morning. Denies abdominal pain, acid reflux, heartburn, unintentional weight loss Risk factors: Daily ETOH (8-10 beers a day) Smokes occasional cigarettes, and heavy use of Aleve- 5 tabs in the morning and sometimes repeats at night History of hematemesis 15 years ago, did not seek medical care at that time, states stopped drinking alcohol and symptoms resolved. Last EGD and colonoscopy by Dr. Mcconnell over 5 years ago, thinks colon polyps unsure of other findings (09/05) Pt denies any nausea, vomiting, abdominal pain. No BM since EGD yesterday. Received 2 U PRBCs yesterday, H/H currently 7.8/22.8 EGD --> Class C esophagitis with linear ulcerations noted, multiple biopsies performed. Medium sized ulcer in the gastric antrum, biopsies. Medium subepithelial lesions were located in the gastric antrum. Multiple erosions in the duodenal bulb Plan: Continue Protonix Avoid NSAIDs ETOH cessation EGD biopsy pending Our service will sign off, please reconsult as needed Have pt follow up with GI after DC Pt has been seen and examined by myself and Dr. Salas and this note is written on his behalf (Deysi Saunders) Physician Comments Agree with above assessment and plan. Please notify us if needed again. (Frankie Salas MD) Deysi Saunders Sep 05, 2017 13:20 Frankie Salas MD Sep 05, 2017 23:16
--- NOTE | 2017-09-12 10:48 | PQ ---
Physician Query Response Document PATIENT: MARGE BILLINGSLEY : 1960 ADMIT DATE: 09/03/2017 8:39 PM DISCH DATE: 09/05/2017 4:39 PM RESPONDING PROVIDER #: Cas QUERY TEXT: Anemia Type Anemia is documented in the Medical Record. Please specify the cause (includes suspected or probable cause) Such as: -- Due to acute blood loss -- Due to chronic blood loss -- Due to iron deficiency -- Due to postoperative blood loss -- Due to chronic disease -- Other, please specify If you have any additional questions/comments and/or concerns, please do not hesitate to reach out to the [facility]I/Coding Hotline, Ext. [phone]. The patient's Clinical Indicators include: Dr. Salas's consult 09/04/17 - Assessment: - Anemia with coffee ground emesis and melena that began at 3 am yesterday morning. EGD showed katelynn inez ulcer and duodenal erosions. Patient received transfusion of 2 units PRBC on 09/04/17. H Query created by: Christie Samuel on 09/06/2017 5:35 PM RESPONSE TEXT: Mr. Billingsley's anemia was due to acute GI blood loss. Electronically signed by: Jessie Valencia MD 09/12/2017 10:44 AM
== END 2017-09-05 16:39 | disposition home or self-care (01) | DRG 378 ==
LOC: NEPC 18:13 → NEDA 20:39 → N07A 22:03
PROVIDERS: ADMIT Family Medicine; ATTEND Family Medicine
PROC: 0DB68ZX Excision of Stomach, Via Natural or Artificial Opening Endoscopic, Diagnostic (ICD-10-PCS; 2017-09-04)
PROC: 30233N1 Transfusion of Nonautologous Red Blood Cells into Peripheral Vein, Percutaneous Approach (ICD-10-PCS; 2017-09-04)
PROC: 0DB58ZX Excision of Esophagus, Via Natural or Artificial Opening Endoscopic, Diagnostic (ICD-10-PCS; principal; 2017-09-04 13:40)
DX: K25.4 Chronic or unspecified gastric ulcer with hemorrhage (principal); D62 Acute posthemorrhagic anemia; K76.0 Fatty (change of) liver, not elsewhere classified; I10 Essential (primary) hypertension; K20.9 Esophagitis, unspecified; K26.9 Duodenal ulcer, unspecified as acute or chronic, without hemorrhage or perforation; Z79.1 Long term (current) use of non-steroidal anti-inflammatories (NSAID); Z72.0 Tobacco use; E66.3 Overweight; Z68.32 Body mass index [BMI] 32.0-32.9, adult; K42.9 Umbilical hernia without obstruction or gangrene; Z72.89 Other problems related to lifestyle
CPT/HCPCS: 36430; 74177; 76937; 80048; 80053; 80307; 83605; 85014; 85018; 85025; 85610; 85730; 86850; 86900; 86901; 86920; 88305; 88312; 93005; 96361; 96365; 96368; C9113; J7030; J7050; P9016; Q9967